=== PATIENT | female | born 1940 ===

== ENCOUNTER → 2018-01-09 06:00 | Outpatient (CLI) | payer OTHER ==
[~2018-01-09] VITALS: Ht 167.6 cm; Wt 78.0 kg
[~2018-01-09 06:00] MED LIST: LIPITOR40 MG PO; LOSARTAN-HCTZ1 EAC1 PO; NORVASC2.5 M1 PO; PLAVIX75 MG PO; TOPROL XL100 MG PO
== END | disposition home or self-care (01) ==
LOC: LAB 06:00 → EDBD 01-14 09:15 → SURG 01-14 09:15 → EDSTATUS 01-14 09:15 → SURG 01-14 16:30
DX: C18.2 Malignant neoplasm of ascending colon (principal); Z86.010 Personal history of colon polyps; K92.1 Melena; Z01.810 Encounter for preprocedural cardiovascular examination; Z01.812 Encounter for preprocedural laboratory examination

== ENCOUNTER 2018-01-30 10:15 | Inpatient (IN) | payer OTHER ==
[~2018-01-30] VITALS: Ht 152.4 cm; Wt 77.1 kg
[~2018-01-30 10:15] MED LIST changes: -LIPITOR40 MG PO; -LOSARTAN-HCTZ1 EAC1 PO; -NORVASC2.5 M1 PO; -TOPROL XL100 MG PO
[2018-01-30] MEDS ORDERED: NORVASC2.5 M1 PO (13:58)
[2018-01-30] MEDS ORDERED: LOSARTAN-HCTZ1 EAC1 PO (13:58)
[2018-01-30] MEDS ORDERED: LIPITOR40 MG PO (13:59)
[2018-01-30] MEDS ORDERED: TOPROL XL100 MG PO (13:59)
== END 2018-02-08 14:52 | disposition home or self-care (01) | DRG 331 ==
LOC: O/R 02-05 10:03 → SURG 02-05 10:03
PROVIDERS: Colon & Rectal Surgery
PROC: 07TC4ZZ Resection of Pelvis Lymphatic, Percutaneous Endoscopic Approach (ICD-10-PCS; 2018-02-05)
PROC: 0DBU4ZZ Excision of Omentum, Percutaneous Endoscopic Approach (ICD-10-PCS; 2018-02-05)
PROC: 0DTF4ZZ Resection of Right Large Intestine, Percutaneous Endoscopic Approach (ICD-10-PCS; principal; 2018-02-05 11:45)
DX: D12.2 Benign neoplasm of ascending colon (principal); I25.10 Atherosclerotic heart disease of native coronary artery without angina pectoris; I10 Essential (primary) hypertension